=== PATIENT | female | born 1965 | race Caucasian/White ===

== ENCOUNTER 2017-06-04 17:49 | Emergency (ER) | payer MEDICARE, MEDICAID ==
--- NOTE | 2017-06-04 18:26 | EDM.PDOC ---
ED HPI GENERAL MEDICAL PROBLEM - General Chief Complaint: Fever Stated Complaint: COUGH, FEVER Time Seen by Provider: 06/04/17 18:13 Source of Information: Reports: Patient History Limitations: Reports: No Limitations - History of Present Illness INITIAL COMMENTS - FREE TEXT/NARRATIVE: Patient is a 52-year-old female presents to the ER today with a complaint of fever, chest congestion, and productive cough. Sputum is described as thick and yellow. States she took a temperature earlier today and thought it showed 105. States that the symptoms have been going on for a little more than a week. She has been taking Mucinex with little to no relief. He feels wheezy and hard to catch her breath after a coughing spell. She denies chest pain, family members with similar symptoms, or out of country travel. Onset: Gradual Duration: Week(s): Location: Reports: Chest Severity: Mild Improves with: Reports: Cold Therapy Worsens with: Reports: None Associated Symptoms: Reports: Cough, cough w sputum Treatments [employer]: Reports: Acetaminophen - Related Data Allergies Allergy/AdvReac Type Severity Reaction Status Date / Time diphenhydramine Allergy Confusion Verified 06/04/17 18:06 [From Benadryl] lisinopril Allergy Cough Verified 06/04/17 18:05 [email or web address] Allergy Swelling Verified 06/04/17 18:05 Home Meds: Home Meds Azithromycin [Zithromax] 500 mg PO DAILY 3 Days #6 tablet 06/04/17 [Rx] Bisacodyl [Dulcolax] 5 mg PO 06/04/17 [History] Linaclotide [Linzess] 72 mcg PO ASDIRECTED 06/04/17 [History] ED ROS GENERAL - Review of Systems Review Of Systems: ROS reveals no pertinent complaints other than HPI. Constitutional: Reports: Fever, Chills, Fatigue HEENT: Reports: No Symptoms Respiratory: Reports: Cough, Sputum Cardiovascular: Reports: No Symptoms Endocrine: Reports: No Symptoms GI/Abdominal: Reports: No Symptoms : Reports: No Symptoms Musculoskeletal: Reports: No Symptoms Skin: Reports: No Symptoms Neurological: Reports: No Symptoms Psychiatric: Reports: No Symptoms Hematologic/Lymphatic: Reports: No Symptoms Immunologic: Reports: No Symptoms ED EXAM, GENERAL - Physical Exam Exam: See Below Exam Limited By: No Limitations General Appearance: Alert, WD/WN, No Apparent Distress Ears: Normal External Exam, Normal Canal, Normal TMs Nose: Normal Inspection, Normal Mucosa, No Blood Throat/Mouth: Normal Inspection, Normal Oropharynx, No Airway Compromise Head: Atraumatic, Normocephalic Neck: Normal Inspection, Supple. No: Lymphadenopathy (L), Lymphadenopathy (R) Respiratory/Chest: No Respiratory Distress, Rales Cardiovascular: Regular Rate, Rhythm, No Murmur GI/Abdominal: Normal Bowel Sounds, Soft, Non-Tender Extremities: Normal Inspection, No Pedal Edema Neurological: Alert, Oriented, Normal Cognition Psychiatric: Normal Affect, Normal Mood Skin Exam: Warm, Dry, Intact, Normal Color, No Rash Lymphatic: No Adenopathy Course - Orders/Labs/Meds Orders: Active Orders 24 hr Category Date Time Status Chest 2V [CR] Stat Exams 06/04/17 18:14 Ordered - Radiology Interpretation Free Text/Narrative:: Chest x-ray shows bilateral basilar infiltrates, right greater than left. - Re-Assessments/Exams Free Text/Narrative Re-Assessment/Exam: 06/04/17 18:32 Patient afebrile, nontoxic appearing, vital signs stable. 1 g Rocephin IM and 500 mg Zithromax by mouth given the patient follow-up with primary care in 1-2 days. 06/04/17 18:37 Departure - Departure Time of Disposition: 18:38 Disposition: Home, Self-Care 01 Condition: Good Clinical Impression: Pneumonia Qualifiers: Pneumonia type: due to unspecified organism Laterality: right Lung location: lower lobe of lung Qualified Code(s): J18.1 - Lobar pneumonia, unspecified organism - Discharge Information Instructions: Community-Acquired Pneumonia, Adult, [id number], Fever, Adult, [id number] Referrals: Otilio Pino MD [Primary Care Provider] - Additional Instructions: FOLLOW UP WITH [facility] IN 1-2 DAYS. RETURN TO ER SOONER IF SYMPTOMS CONTINUE - My Orders Last 24 Hours: My Active Orders 06/04/17 18:14 Chest 2V [CR] Stat - Assessment/Plan Last 24 Hours: My Active Orders 06/04/17 18:14 Chest 2V [CR] Stat Assessment:: PNEUMONIA Plan: F/U WITH PCP.
[2017-06-04] MEDS ORDERED: Azithromycin 250 MG Tab PO ONE (18:30)
[2017-06-04] MEDS ORDERED: cefTRIAXone 1 GM Vial IM ONE (18:30)
[2017-06-04] MEDS ORDERED: cefTRIAXone 1 GM Vial ONE (18:31)
[2017-06-04] MEDS ORDERED: Lidocaine 1% 20 ML MDV ONE (18:33)
== END 2017-06-04 18:40 | disposition home or self-care (01) ==
LOC: MERGE 17:49 → KA.ED 17:49
DX: J18.9 Pneumonia, unspecified organism (principal); Z79.2 Long term (current) use of antibiotics; Z88.8 Allergy status to other drugs, medicaments and biological substances; Z91.018 Allergy to other foods
CPT/HCPCS: 71020; 96372; 99283; A9270; J0696; 99284